=== PATIENT | female | born 1975 ===

== ENCOUNTER 2016-07-15 14:29 | Emergency (ER) | payer OTHER ==
[2016-07-15 14:39] VITALS: BP 130/83; PULSE 74; RESP 18; TEMP 98.3; O2SAT 100
--- NOTE | 2016-07-15 15:09 | ED PDOC ---
HPI: General Adult Time Seen by Provider: 07/15/16 14:47 Chief Complaint (Nursing): Flu-like Symptoms Chief Complaint (Provider): Flu-like symptoms History Per: Patient History/Exam Limitations: no limitations Onset/Duration Of Symptoms: Days (x7) Additional Complaint(s): Lady Hopson, 41 year old female presents to the ED on 07/15/16 with a cough occurring for 1 week prior to arrival. She states that she has phlegm associated with her cough and denies fever. Past Medical History Reviewed: Historical Data, Nursing Documentation, Vital Signs Vital Signs: Last Vital Signs Temp 98.3 F 07/15/16 14:36 Pulse 74 07/15/16 14:36 Resp 18 07/15/16 14:36 BP 130/83 07/15/16 14:36 Pulse Ox 100 07/15/16 15:08 - Medical History PMH: No Chronic Diseases - Family History Family History: States: Unknown Family Hx - Home Medications Home Medications: Ambulatory Orders Medication Instructions Recorded Promethazine HCl/Codeine 10 ml PO Q8H PRN #150 ml 07/15/16 [Prometh-Codein 6.25-10 mg/5 ml] - Allergies Allergies/Adverse Reactions: Allergies Allergy/AdvReac Type Severity Reaction Status Date / Time No Known Allergies Allergy Verified 07/15/16 14:36 Review of Systems Constitutional: Negative for: Fever Respiratory: Positive for: Cough (with phlegm) Physical Exam - Reviewed Nursing Documentation Reviewed: Yes Vital Signs Reviewed: Yes - Physical Exam Appears: Positive for: Non-toxic, No Acute Distress Head Exam: Positive for: ATRAUMATIC, NORMOCEPHALIC Cardiovascular/Chest: Positive for: Regular Rate, Rhythm, Chest Non Tender Respiratory: Positive for: Normal Breath Sounds. Negative for: Accessory Muscle Use, Respiratory Distress Neurologic/Psych: Positive for: Alert, Oriented (x3) - ECG O2 Sat by Pulse Oximetry: 100 (RA) Pulse Ox Interpretation: Normal Medical Decision Making Medical Decision Making: Initial Impression: Cough with phlegm Initial Plan: * Chest Two views (PA/LAT) [RAD] Stat * ED Urine (POC) Stat CXR - No acute abnormalities. Scribe Attestation: Documented by Tiffanie Winters, acting as a scribe for Sally Bradford PA-C. Provider Scribe Attestation: All medical record entries made by the Scribe were at my direction and personally dictated by me. I have reviewed the chart and agree that the record accurately reflects my personal performance of the history, physical exam, medical decision making, and the department course for this patient. I have also personally directed, reviewed, and agree with the discharge instructions and disposition. Disposition - Clinical Impression Clinical Impression: Cough - Patient ED Disposition Is Patient to be Admitted: No Counseled Patient/Family Regarding: Diagnosis, Need For Followup, Rx Given - Disposition Referrals: [facility] [Outside] Disposition: Routine/Home Disposition Time: 15:46 Condition: GOOD Prescriptions: Promethazine HCl/Codeine [Prometh-Codein 6.25-10 mg/5 ml] 10 ml PO Q8H PRN #150 ml PRN Reason: Cough Instructions: Cold Symptoms (ED) Print Language: ICELANDIC
--- NOTE | 2016-07-15 15:23 | RAD ---
HISTORY: cough x 1 week COMPARISON: Chest x-ray performed 10/27/11 TECHNIQUE: Chest PA and lateral FINDINGS: Examination limited by habitus and hypoinflation. LUNGS: No focal consolidation. Please note that chest x-ray has limited sensitivity for the detection of pulmonary masses. PLEURA: No significant pleural effusion identified. No definite pneumothorax . CARDIOVASCULAR: The cardiomediastinal silhouette appears within normal limits of size. OSSEOUS STRUCTURES: No acute osseous abnormality identified. VISUALIZED UPPER ABDOMEN: Elevation/eventration of the right hemidiaphragm. OTHER FINDINGS: None. IMPRESSION: No focal consolidation, significant pleural effusion, or definite pneumothorax identified.
== END 2016-07-15 15:53 | disposition home or self-care (01) ==
LOC: H.ER 14:29
DX: R05 Cough (principal)

== ENCOUNTER 2017-01-11 00:02 | Emergency (ER) | payer OTHER, SELFPAY ==
[2017-01-11 00:27] VITALS: BP 146/82; PULSE 72; RESP 18; TEMP 98.1; O2SAT 98
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
== END 2017-01-11 02:42 | disposition home or self-care (01) ==
LOC: H.ER 00:02
DX: M25.511 Pain in right shoulder (principal); M54.2 Cervicalgia; V43.62XA Car passenger injured in collision with other type car in traffic accident, initial encounter; Y92.410 Unspecified street and highway as the place of occurrence of the external cause